=== PATIENT | female | born 1940 | race Caucasian/White ===

== ENCOUNTER 2016-09-22 07:52 | Emergency (ER) | payer MEDICARE ==
[~2016-09-22] VITALS: Ht 154.9 cm; Wt 53.1 kg
--- NOTE | 2016-09-22 07:53 | NUR ---
Pt report received from ARVIN Gonzalez. Pt AAOx4, even and non-labored respirations, BBS clear. Pt denies falling, no LOC, no focal neurodeficits noted. Family member at bedside.
--- NOTE | 2016-09-22 07:53 | NUR ---
Arrived via private auto for right sided ataxia, slurred speech, weakness in both hands reported by daughter. Patient does not demonstrate any gait ataxia, slurred speech or weakness at this time, which the daughter agrees with. Placed in room 2. Placed on bookkeeping machine mechanic, blood pressure machine and pulse oximeter. To gown for exam. Side rails up. Report given to Raul SHERIDAN.
--- NOTE | 2016-09-22 07:55 | NUR ---
ER Dr. Camargo at bedside examining patient.
[2016-09-22 08:02] VITALS: BP 91/46; PULSE 57; RESP 18; O2SAT 97
--- NOTE | 2016-09-22 08:10 | NUR ---
# 20 gauge angiocath placed to LFA. Use of asceptic technique. Opsite placed over site. Blood return noted. Blood for lab drawn from site. Flushed with 10 cc of normal saline. No evidence of infiltration noted. Patient tolerated well.
--- NOTE | 2016-09-22 08:20 | NUR ---
Attempted I/O cath. No urinary output. Pt to be administered 2 Liters NS bolus.
[2016-09-22 08:25] LABS: BASOPHILS % (AUTO) 0.5 % (0.0-2.0); EOSINOPHILS # (AUTO) 0.4 K/uL (0.0-0.4); EOSINOPHILS % (AUTO) 4.6 % (0.0-4.0); HEMATOCRIT 36.9 % (36-48); HEMOGLOBIN 12.4 g/dL (12.0-16.0); LYMPHOCYTES # (AUTO) 1.7 K/uL (1.0-5.5); LYMPHOCYTES % (AUTO) 20.3 % (20.5-51.5); MEAN CORPUSCULAR HEMOGLOBIN 31 pg (27-31); MEAN CORPUSCULAR HGB CONC 34 % (32-36); MEAN CORPUSCULAR VOLUME 93 fL (79.0-98.0); MONOCYTES # (AUTO) 0.5 K/uL (0.0-1.0); MONOCYTES % (AUTO) 6.3 % (1.7-9.3); NEUTROPHILS # (AUTO) 5.7 K/uL (1.8-7.7); NEUTROPHILS % (AUTO) 68.3 % (40.0-70.0); PLATELET COUNT (AUTO) 375 K/uL (130-430); RED BLOOD CELL COUNT(AUTO) 3.95 MIL/uL (4.2-6.2); RED CELL DISTRIBUTION WIDTH 13.7 % (9.0-15.0); WHITE BLOOD COUNT (AUTO) 8.3 K/uL (4.8-10.8)
[2016-09-22 08:32] LABS: ANION GAP 10 (5-15); CALCIUM 11.3 mg/dL (8.4-11.0); CHLORIDE 97 mmol/L (98-107); CREATININE 3.89 mg/dL (0.55-1.30); GLUCOSE 129 mg/dL (70-99); POTASSIUM 4.7 mmol/L (3.5-5.1); SODIUM SERUM 129 mmol/L (136-145); UREA NITROGEN, BLOOD 71 mg/dL (8-21)
[2016-09-22 08:34] LABS: INR 0.9 (0.8-1.2); PROTHROMBIN TIME 9.9 SECS (9.5-12.5)
[2016-09-22 08:36] LABS: ALANINE AMINOTRANSFERASE 19 U/L (12-78); ALBUMIN 3.4 g/dL (3.4-4.8); ASPARTATE AMINOTRANSFERASE 15 U/L (10-37); TOTAL BILIRUBIN 0.4 mg/dL (0.0-1.0); TOTAL PROTEIN, SERUM 6.7 g/dL (6.4-8.3)
[2016-09-22 08:37] LABS: CHOLESTEROL 115 mg/dL (<200); HDL CHOLESTEROL 74 mg/dL (>55); LDL CHOLESTEROL 34 mg/dL (<100); TRIGLYCERIDES 90 mg/dL (30-150)
[2016-09-22] MEDS ORDERED: NACL 0.9% 1,000 ML IV ONE ×2 (08:45)
--- NOTE | 2016-09-22 09:00 | NUR ---
Pt resting quietly, no change in neurostatus, daughter at bedside. No needs verbalized.
[2016-09-22] MEDS ORDERED: ASPIRIN 81 MG TAB.CHEW PO ONE (09:15)
--- NOTE | 2016-09-22 10:15 | NUR ---
PT WILL BE TRANSFERRED TO [facility] VIA ALS TRANSP[facility]. DR CHULA PALACIO IS ACCEPTING. NUMBER FOR REPORT IS [phone]. ETA IS 11AM.
[2016-09-22 10:17] LABS: BILIRUBIN,URINE NEGATIVE (NEGATIVE); BLOOD, URINE NEGATIVE (NEGATIVE); CLARITY/URINE CLEAR (CLEAR); COLOR,URINE YELLOW (YELLOW); GLUCOSE,URINE NEGATIVE (NEGATIVE); KETONES,URINE NEGATIVE (NEGATIVE); LEUKOCYTE ESTERASE ,URINE TRACE (NEGATIVE); NITRITE, URINE NEGATIVE (NEGATIVE); PH,URINE 5.5 (5.0-8.0); PROTEIN URINE NEGATIVE (NEGATIVE); UROBILINOGEN,URINE 0.2 (0.2-1.0)
--- NOTE | 2016-09-22 10:18 | NUR ---
Pt report called to Bertin FIGUEREDO
[2016-09-22 10:26] LABS: BACTERIA,URINE FEW /HPF (None Seen); MUCUS,URINE None Seen /LPF (None Seen); RBC,URINE 0-3 /HPF (0-3); WBC,URINE 0-3 /HPF (0-3)
[2016-09-22 11:35] VITALS: BP 127/56; PULSE 62; RESP 18; TEMP 97.1; O2SAT 100
--- NOTE | 2016-09-22 11:35 | NUR ---
Patient to be transferred to [facility]. Is being transferred due to higher level of care. Receiving facility has accepting physician and available space. ER physician has signed transfer form. Patient or responsible green party has agreed to transfer and signed form. Patient belongings inventoried and will be sent with patient. Copy of nursing notes, lab reports, EKG, Physicians Orders and X-rays to be sent with patient. Report called to RN at receiving facility. Receiving physician is Dr. Raul Parker. Pt leaves in stable condition per BLS.
== END 2016-09-22 11:35 | disposition short-term general hospital (02) ==
LOC: SED 07:52
DX: G45.9 Transient cerebral ischemic attack, unspecified (principal); N17.9 Acute kidney failure, unspecified; E86.0 Dehydration; J44.9 Chronic obstructive pulmonary disease, unspecified; F03.90 Unspecified dementia, unspecified severity, without behavioral disturbance, psychotic disturbance, mood disturbance, and anxiety; I10 Essential (primary) hypertension; F17.200 Nicotine dependence, unspecified, uncomplicated; Z71.6 Tobacco abuse counseling
CPT/HCPCS: 36415; 70450; 71010; 80053; 80061; 81000; 83605; 84484; 85025; 85610; 85730; 87040; 93005; 96360; 96361; 99285; J7030

== ENCOUNTER 2016-10-10 11:57 | Emergency (ER) | payer MEDICARE ==
[~2016-10-10] VITALS: Ht 154.9 cm; Wt 50.3 kg
[2016-10-10 11:57] VITALS: BP_SYST 157
--- NOTE | 2016-10-10 11:57 | NUR ---
BROUGHT IN BY [facility] 34 AND PLACED IN BED #3, REPORT GIVEN TO LAVERN
--- NOTE | 2016-10-10 12:02 | NUR ---
Patient alert and oriented x4. States has had generalized weakness, nausea and off and on dizziness for a few days. Denies vomiting. Denies shortness of breath or chest pain. No other complaints/injuries per patient or noted.
[2016-10-10] MEDS ORDERED: NACL 0.9% 1,000 ML IV SCH (12:18)
--- NOTE | 2016-10-10 12:19 | NUR ---
Dr. Camargo at bedside
[2016-10-10] MEDS ORDERED: KETOROLAC TROMETHAMINE 15 MG VIAL IVP ONE (12:30)
[2016-10-10 12:46] LABS: BASOPHILS % (AUTO) 0.5 % (0.0-2.0); EOSINOPHILS # (AUTO) 0.2 K/uL (0.0-0.4); HEMATOCRIT 38.4 % (36-48); HEMOGLOBIN 12.6 g/dL (12.0-16.0); LYMPHOCYTES # (AUTO) 1.1 K/uL (1.0-5.5); LYMPHOCYTES % (AUTO) 13.4 % (20.5-51.5); MEAN CORPUSCULAR HEMOGLOBIN 31 pg (27-31); MEAN CORPUSCULAR HGB CONC 33 % (32-36); MEAN CORPUSCULAR VOLUME 93 fL (79.0-98.0); MONOCYTES # (AUTO) 0.3 K/uL (0.0-1.0); MONOCYTES % (AUTO) 3.7 % (1.7-9.3); NEUTROPHILS # (AUTO) 6.9 K/uL (1.8-7.7); NEUTROPHILS % (AUTO) 80.4 % (40.0-70.0); PLATELET COUNT (AUTO) 335 K/uL (130-430); RED BLOOD CELL COUNT(AUTO) 4.13 MIL/uL (4.2-6.2); RED CELL DISTRIBUTION WIDTH 14.6 % (9.0-15.0); WHITE BLOOD COUNT (AUTO) 8.5 K/uL (4.8-10.8)
[2016-10-10 12:51] LABS: ANION GAP 3 (5-15); CALCIUM 9.5 mg/dL (8.4-11.0); CHLORIDE 98 mmol/L (98-107); GLUCOSE 125 mg/dL (70-99); SODIUM SERUM 131 mmol/L (136-145); UREA NITROGEN, BLOOD 26 mg/dL (8-21)
[2016-10-10 12:53] LABS: PROTHROMBIN TIME 10.4 SECS (9.5-12.5)
[2016-10-10 12:56] LABS: ALANINE AMINOTRANSFERASE 22 U/L (12-78); ALBUMIN 3.5 g/dL (3.4-4.8); ASPARTATE AMINOTRANSFERASE 19 U/L (10-37); TOTAL BILIRUBIN 0.4 mg/dL (0.0-1.0); TOTAL PROTEIN, SERUM 6.8 g/dL (6.4-8.3)
--- NOTE | 2016-10-10 12:57 | NUR ---
RESTING QUIETLY, DAUGHTER AT BEDSIDE GIVING SUPPORT
--- NOTE | 2016-10-10 13:10 | NUR ---
NO CHANGES. RESTING
--- NOTE | 2016-10-10 13:45 | NUR ---
PT STATES SHE FEELS BETTER, INFORMED OF TRANSFER TO [facility], PT AND FAMILY AWARE.
--- NOTE | 2016-10-10 14:27 | NUR ---
REPORT CALLED TO KRISTEN AT [facility] AT [phone], REPORT GIVEN AND ESTIMATED TIME OF ARRIVAL
--- NOTE | 2016-10-10 15:30 | NUR ---
Patient to be transferred to [facility]. Is being transferred due to higher level of care. Receiving facility has accepting physician and available space. ER physician has signed transfer form. Patient or responsible constitution party has agreed to transfer and signed form. Patient belongings inventoried and will be sent with patient. Copy of nursing notes, lab reports, EKG, Physicians Orders and X-rays to be sent with patient. Report called to KRISTEN at receiving facility. Receiving physician is DR GOMEZ. [facility] has been called for transfer. ETA is NOW.
[2016-10-10 15:32] VITALS: BP_SYST 131
== END 2016-10-10 15:30 | disposition short-term general hospital (02) ==
LOC: SED 11:57
DX: N17.9 Acute kidney failure, unspecified (principal); E86.0 Dehydration; J44.9 Chronic obstructive pulmonary disease, unspecified; F03.90 Unspecified dementia, unspecified severity, without behavioral disturbance, psychotic disturbance, mood disturbance, and anxiety; I10 Essential (primary) hypertension
CPT/HCPCS: 36415; 71010; 80053; 83605; 84484; 85025; 85610; 85730; 87040; 93005; 96361; 96374; 99285; J1885; J7030

== ENCOUNTER 2018-08-18 11:59 | Emergency (ER) | payer MEDICARE ==
[~2018-08-18] VITALS: Ht 160 cm; Wt 68.0 kg
--- NOTE | 2018-08-18 12:00 | NUR ---
Placed in room 05. Placed on groundwater monitoring technician, blood pressure machine and pulse oximeter. To gown for exam. Side rails up.
--- NOTE | 2018-08-18 12:00 | NUR ---
ER Dr. Soto at bedside examining patient.
--- NOTE | 2018-08-18 12:05 | NUR ---
Arrived via BLS ambulance S/P fall. Patient to ER bed 5 to gown for evaluation. Side rails up. Report given to Jono SHERIDAN.
[2018-08-18 12:14] VITALS: BP_SYST 146
[2018-08-18] MEDS ORDERED: LISI-600 PO (12:20)
[2018-08-18] MEDS ORDERED: AMLO5TAB4 PO (12:20)
[2018-08-18] MEDS ORDERED: ESCI10TA PO (12:20)
[2018-08-18] MEDS ORDERED: CLOP300T2 PO (12:20)
[2018-08-18] MEDS ORDERED: SACC250C3 PO (12:20)
[2018-08-18] MEDS ORDERED: OLAN2.5T29 PO (12:20)
[2018-08-18] MEDS ORDERED: MIRT15TA7 PO (12:20)
[2018-08-18] MEDS ORDERED: TRAZ-126 PO (12:20)
[2018-08-18] MEDS ORDERED: LIP10 PO (12:20)
--- NOTE | 2018-08-18 12:20 | NUR ---
Medication reconciliation completed with information provided by RX bottles given by daughter. Any prior medication reconciliation on file was reviewed and corrected.
[2018-08-18] MEDS ORDERED: fentaNYL CITRATE/PF 100 MCG/2 ML AMP IM ONE (12:30)
[2018-08-18] MEDS ORDERED: KETOROLAC TROMETHAMINE 60 MG/2 ML VIAL IM ONE (12:30)
--- NOTE | 2018-08-18 12:30 | NUR ---
ASSUMED PATIENT CARE, NURSING ASSESSMENT COMPLETED. SEEN AND EVALUATED BY ALISSON ARIZA COMPLETED.
[2018-08-18 14:20] VITALS: BP_SYST 129
--- NOTE | 2018-08-18 14:35 | NUR ---
Patient given written and verbal discharge instructions and verbalizes understanding. ER MD discussed with patient the results and treatment provided. Patient in stable condition. ID arm band removed. IV catheter removed intact and dressing applied, no active bleeding. Rx of SOMA AND MOTRIN given. Patient educated on pain management and to follow up with PMD. Pain Scale . Opportunity for questions provided and answered. Medication side effect fact sheet provided.
== END 2018-08-18 14:33 | disposition home or self-care (01) ==
LOC: SED 11:59
DX: S39.012A Strain of muscle, fascia and tendon of lower back, initial encounter (principal); J44.9 Chronic obstructive pulmonary disease, unspecified; F03.90 Unspecified dementia, unspecified severity, without behavioral disturbance, psychotic disturbance, mood disturbance, and anxiety; I10 Essential (primary) hypertension; M81.0 Age-related osteoporosis without current pathological fracture; Z86.79 Personal history of other diseases of the circulatory system; Z79.899 Other long term (current) drug therapy; W06.XXXA Fall from bed, initial encounter; Y93.89 Activity, other specified; Y92.89 Other specified places as the place of occurrence of the external cause; Y99.8 Other external cause status
CPT/HCPCS: 72131; 96372; 99284; J1885; J3010